=== PATIENT | male | born 1960 | race Caucasian/White ===

== ENCOUNTER 2017-03-02 09:15 | Outpatient (CLI) | payer OTHER ==
--- NOTE | 2017-03-02 11:27 | DIAGNOSTIC IMAGING REPORT ---
PROCEDURE: CT LOW-DOSE LUNG CA SCREENING CLINICAL INDICATION: LUNG CA SCREENING TECHNIQUE: Low-dose helical CT images of the lungs without contrast were obtained and reconstructed at 2.5 mm intervals. MIP reformations in coronal and sagittal planes were created. Radiation dose 1.39 mGy. COMPARISON: Oldest available comparison: Chest x-ray 11/21/2010. FINDINGS: NODULES: Location: Left upper lobe; image location: 39; size: 3 mm; composition: Non solid Location: Left upper lobe; image location: 68; size: 8 mm; composition: partly solid (may been present previously, 6 mm). OTHER LUNG FINDINGS: Severe bullous emphysema with by apical calcified scarring. 9 mm right lower lobe calcified granuloma. AIRWAY: Branches normally without narrowing or endobronchial nodule. PLEURA: No effusions, thickening, or pneumothorax. AORTA AND GREAT VESSELS: Normal caliber, minor atherosclerotic calcification. . PULMONARY ARTERIES: Normal. . HEART AND PERICARDIUM: Normal size without effusion, thickening. LYMPH NODES: No enlarged nodes visible. THORACIC SPINE: No suspicious lesion. CHEST WALL: Normal. VISUALIZED UPPER ABDOMEN: Normal. IMPRESSION: 1. 8 mm left upper lobe partially solid nodule (possibly present previously, 6 mm) and 3 mm non solid left upper lobe nodule 2. Category 3, probably benign. Recommend LDCT in 6 months. 3. Severe bullous emphysema with biapical scarring 4. Right lower lobe calcified granuloma All CT scans at this facility use dose modulation, iterative reconstruction, and/or weight-based dosing when appropriate to reduce radiation dose to as low as reasonably achievable.
== END 2017-03-02 23:00 ==
LOC: RT SRH 09:15
DX: R91.1 Solitary pulmonary nodule (principal); J43.9 Emphysema, unspecified; J84.10 Pulmonary fibrosis, unspecified